=== PATIENT | female | born 1995 | race Caucasian/White ===

== ENCOUNTER → 2023-09-09 | Outpatient (REF) | payer BC | LOC: M SFHCWAGY 10:17 | PROVIDERS: ATTEND Nurse Practitioner Family | DX: Z12.4 Encounter for screening for malignant neoplasm of cervix (principal); R87.610 Atypical squamous cells of undetermined significance on cytologic smear of cervix (ASC-US) | CPT/HCPCS: 87624; G0123 ==

== ENCOUNTER → 2024-09-21 | Outpatient (REF) | payer BC ==
[2024-09-23 15:07] LABS: HPV APTIMA Not Detected (Not Detected)
== END ==
LOC: M SFHCWAGY 17:55
PROVIDERS: ATTEND Nurse Practitioner Family
DX: Z12.4 Encounter for screening for malignant neoplasm of cervix (principal)
CPT/HCPCS: 87624; G0123